=== PATIENT | male | born 1960 | race Caucasian/White ===

== ENCOUNTER 2016-12-22 15:06 | Emergency (ER) | payer MEDICARE, MEDICAID ==
--- NOTE | 2016-12-22 15:12 | ER Document Report ---
ED Medical Screen (RME) - General Stated Complaint: FINGER LACERATION Mode of Arrival: Wheelchair Information source: Patient Notes: pt presents to the ED with lacerations to right fingers after putting the hand thru a window. Reports he went to get up and stumbled, breaking the glass. Reports tetanus is up to date. No active bleeding. I have greeted and performed a rapid initial assessment of this patient. A comprehensive ED assessment and evaluation of the patient, analysis of test results and completion of the medical decision making process will be conducted by additional ED providers.
[2016-12-22] MEDS ORDERED: ACETAMINOPHEN 325 MG TABLET PO ONE (15:46)
[2016-12-22] MEDS ORDERED: DIPH/PERTUSS(ACELL)/TETANUS VAC/PF 0.5 ML SYR (>=10YO) IM ONE (17:12)
--- NOTE | 2016-12-22 17:45 | ER Document Report ---
HPI - HPI Patient complains to provider of: hand injury Onset: This afternoon Onset/Duration: Sudden Quality of pain: Achy Pain Level: 4 Context: Patient states that he fell and his hand went through glass cutting the dorsal aspect of his right second and third finger. Patient states that he only his tetanus immunization updated. Associated Symptoms: Other - Finger laceration Exacerbated by: Movement Relieved by: Denies Similar symptoms previously: Yes Recently seen / treated by doctor: No - ROS ROS below otherwise negative: Yes Systems Reviewed and Negative: Yes All other systems reviewed and negative - CONSTITUTIONAL Constitutional: DENIES: Fever, Chills - NEURO Neurology: DENIES: Weakness - MUSCULOSKELETAL Musculoskeletal: REPORTS: Extremity pain. DENIES: Swelling - DERM Skin Color: Normal Skin Problems: Laceration Past Medical History - General Information source: Patient - Social History Smoking Status: Current Every Day Smoker Chew tobacco use (# tins/day): No Frequency of alcohol use: None Drug Abuse: None Lives with: Family Family History: Reviewed & Not Pertinent Pulmonary Medical History: Reports: Hx COPD Renal/ Medical History: Denies: Hx Peritoneal Dialysis Musculoskeltal Medical History: Reports Hx Musculoskeletal Trauma Past Surgical History: Reports: Hx Genitourinary Surgery, Hx Orthopedic Surgery - Immunizations Immunizations up to date: No Vertical Provider Document - CONSTITUTIONAL Agree With Documented VS: Yes Exam Limitations: No Limitations General Appearance: WD/WN, No Apparent Distress - INFECTION CONTROL TRAVEL OUTSIDE OF THE [place] IN LAST 30 DAYS: No - HEENT HEENT: Atraumatic, Normocephalic - NECK Neck: Normal Inspection - RESPIRATORY Respiratory: Breath Sounds Normal, No Respiratory Distress O2 Sat by Pulse Oximetry: 95 - CARDIOVASCULAR Cardiovascular: Regular Rate, Regular Rhythm Pulses: Normal: Radial - MUSCULOSKELETAL/EXTREMETIES Musculoskeletal/Extremeties: MAEW, Tender - Patient with mild tenderness to right third finger, No Edema Notes: No tendon deficit - NEURO Level of Consciousness: Awake, Alert, Appropriate Motor/Sensory: No Motor Deficit, No Sensory Deficit - DERM Integumentary: Warm, Dry, Laceration - Superficial laceration to dorsal aspect of right second and third finger tip, no active bleeding Course - Vital Signs Vital signs: Temp Pulse Resp BP Pulse Ox 98.7 F 92 20 149/79 H 95 12/22/16 15:13 12/22/16 15:13 12/22/16 15:13 12/22/16 15:13 12/22/16 15:13 Discharge - Discharge Clinical Impression: Elevated blood pressure reading Hand laceration Qualifiers: Encounter type: initial encounter Foreign body presence: without foreign body Laterality: right Qualified Code(s): S61.411A - Laceration without foreign body of right hand, initial encounter Condition: Stable Disposition: HOME, SELF-CARE Instructions: Tetanus Immunization Given (OM), Soap Cleansing (OM), Non- Sutured Laceration (OM), Care of Steri-Strip Closure (OM) Additional Instructions: Return immediately for any new or worsening symptoms Followup with your primary care provider, call tomorrow to make a followup appointment Your blood pressure was mildly elevated today. Recheck with a primary doctor to have this reevaluated 2 days. Forms: Elevated Blood Pressure Referrals: [facility] [Provider Group] - Follow up as needed [facility] [Provider Group] - Follow up as needed
[2016-12-22] MEDS ORDERED: IBUPROFEN 800 MG TABLET PO ONE (18:14)
[2016-12-22 18:20] VITALS: BP 151/85
== END 2016-12-22 18:25 | disposition home or self-care (01) ==
LOC: ER 15:06
DX: S61.411A Laceration without foreign body of right hand, initial encounter (principal); R03.0 Elevated blood-pressure reading, without diagnosis of hypertension; W01.10XA Fall on same level from slipping, tripping and stumbling with subsequent striking against unspecified object, initial encounter; F17.200 Nicotine dependence, unspecified, uncomplicated; J44.9 Chronic obstructive pulmonary disease, unspecified; Z23 Encounter for immunization
CPT/HCPCS: 99282; 90471; 90715; A9270 ×2